=== PATIENT | female | born 1955 | race Caucasian/White ===

== ENCOUNTER 2019-04-19 10:35 | Inpatient (IN) | payer OTHER ==
--- OUTSIDE RECORDS SUMMARY | 2019-04-19 10:38 | XMS REPORT ---
:1955 [facility] Address [address] [place] [address] [address]. [address] [place] [address] Care Team Providers Name Role Phone Unavailable Unavailable Unavailable Problems This patient has no known problems. Allergies, Adverse Reactions, Alerts This patient has no known allergies or adverse reactions. Medications This patient has no known medications.
[2019-04-19 11:38] LABS: Absolute Lymphocytes (CBC) 0.4 K/uL (0.7-4.9); Basophils % 0.7 % (0-1.3); Hematocrit 44.1 % (36.0-45.0); Lymphocytes % 6.6 % (15.3-44.8); RBC Red Blood Cell Count 4.59 M/uL (3.86-4.86)
[2019-04-19 11:42] LABS: Arterial Blood Carboxyhemoglob 2.2 % (0-1.5); Blood Gas Oxyhemoglobin 93.5 % (94-97); Blood O2 Saturation 96.5 % (92-98.5)
[2019-04-19 11:43] LABS: Protime INR 0.94
[2019-04-19 11:50] LABS: ALT/SGPT 28 U/L (12-78); AST/SGOT 31 U/L (15-37); Albumin 3.8 g/dL (3.4-5.0); Alkaline Phosphatase 201 U/L (45-117); BUN Blood Urea Nitrogen 15 mg/dL (7-18); Bicarbonate 29 mmol/L (21-32); Bilirubin Direct < 0.1 mg/dL (0-0.2); Bilirubin Total 0.2 mg/dL (0.2-1.0); CKMB Creatine Kinase MB 1.4 ng/mL (0.3-3.6); Creatine Phosphokinase 86 U/L (26-192); Glucose Level 94 mg/dL (74-106); Lipase 222 U/L (73-393); Potassium 4.1 mmol/L (3.5-5.1); Protein, Total 7.2 g/dL (6.4-8.2); Sodium Level 137 mmol/L (136-145); Troponin (Emerg Dept Use Only) < 0.02 ng/mL (0.0-0.045)
[2019-04-19] MEDS ORDERED: NA CHLORIDE 0.9% 1,000 ML ONE (11:57)
[2019-04-19] MEDS ORDERED: METOPROLOL TAR 25 MG TAB ONE (11:57)
[2019-04-19] MEDS ORDERED: NA CHLORIDE 0.9% 500 ML ONE (11:57)
--- NOTE | 2019-04-19 13:27 | RAD REPORT ---
EXAM DESCRIPTION: CT - Chest For Pe Angio - 04/19/2019 1:16 pm CLINICAL HISTORY: Chest pain. COPD;Dyspnea COMPARISON: No comparisons TECHNIQUE: CT angiogram of the pulmonary arteries was performed with MIP. All CT scans are performed using dose optimization technique as appropriate and may include automated exposure control or mA/KV adjustment according to patient size. FINDINGS: No evidence of pulmonary thromboembolism. No acute aortic finding demonstrated. Prominent diffuse COPD is present. No significant pericardial or pleural fluid. Prominent S-shaped scoliosis is noted. IMPRESSION: No evidence of pulmonary thromboembolism. Advanced COPD.
[2019-04-19 13:36] LABS: Urine Blood TRACE (NEG); Urine Glucose NEGATIVE (NEG); Urine Protein 1+ (NEG)
[2019-04-19] MEDS ORDERED: OSELTAMIVIR 75 MG CAP ONE (13:50)
[2019-04-19] MEDS ORDERED: METHYLPREDNISOLONE 125 MG INJ ONE (13:50)
[2019-04-19 14:06] LABS: Urine Bacteria >50 /HPF (<20); Urine RBC <5 /HPF (NONE SEEN)
[2019-04-19 14:07] LABS: Urine Culture Reflex Order NOT NEEDED
[2019-04-19] MEDS ORDERED: NA CHLORIDE 0.9% 100 ML IV ONE (14:22)
[2019-04-19] MEDS ORDERED: CEFTRIAXONE/SWI 1gm 1 GM/10 ML SYR ONE (14:23)
--- NOTE | 2019-04-19 14:43 | EKG ---
Test Date: 2019-04-19 Test Time: 11:54:05 Wax Pot Tender: TT MEASUREMENT RESULTS: Intervals: Rate: 108 NC: 134 QRSD: 78 QT: 312 QTc: 418 [place]: P: 80 NC: 134 QRS: 69 T: 90 INTERPRETIVE STATEMENTS: Sinus tachycardia Biatrial enlargement Abnormal ECG Compared to ECG 09/28/2008 07:01:56 Atrial abnormality now present Sinus rhythm no longer present Electronically Signed On 04-19-19 14:42:30 TAPE RULES PRINTING MACHINE OPERATOR by Seven Farley
--- NOTE | 2019-04-19 14:46 | EDPHYS ---
Physician Documentation [facility] Name: Renard Garrett Age: 64 yrs Sex: Female : 1955 Arrival Date: 04/19/2019 Time: 10:38 Bed 16 Private MD: ED Physician Adrian Sawyer HPI: 04/19 11:32 This 64 yrs old Female presents to ER via Wheelchair with complaints of High snw Blood Pressure, Fever. 11:32 The patient has elevated blood pressure and discovered this at a physician's office, snw and sent to the emergency department for evaluation. Onset: The symptoms/episode began/occurred suddenly. Severity of symptoms: At its worst the blood pressure was 210 mm Hg. Historical: - Allergies: 10:45 No Known Allergies; sv - Home Meds: 12:58 Keppra 750 mg Oral tab 1 tab 2 times per day [Active]; citalopram 10 mg tab 1 tab once bp daily [Active]; diazepam 10 mg Oral tab 1 tab 4 times per day [Active]; - PMHx: 10:45 CVA; slight rided sided parlysis; Depression; sv - Immunization history:: Adult Immunizations up to date. - Social history:: Smoking status: Patient uses tobacco products, quit yesterday. - Ebola Screening: : No symptoms or risks identified at this time. ROS: 11:31 Constitutional: Negative for fever, chills, and weight loss, Eyes: Negative for injury, snw pain, redness, and discharge, ENT: Negative for injury, pain, and discharge, Neck: Negative for injury, pain, and swelling, Cardiovascular: Negative for chest pain, palpitations, and edema. 11:31 Abdomen/GI: Negative for abdominal pain, nausea, vomiting, diarrhea, and constipation, Back: Negative for injury and pain, : Negative for injury, bleeding, discharge, and swelling, MS/Extremity: Negative for injury and deformity, Skin: Negative for injury, rash, and discoloration, Neuro: Negative for headache, weakness, numbness, tingling, and seizure. 11:31 Respiratory: Positive for cough, shortness of breath, at rest. began suddenly yesterday. Exam: 11:28 Head/Face: Normocephalic, atraumatic. Eyes: Pupils equal round and reactive to light, snw extra-ocular motions intact. Lids and lashes normal. Conjunctiva and sclera are non-icteric and not injected. Cornea within normal limits. Periorbital areas with no swelling, redness, or edema. ENT: Nares patent. No nasal discharge, no septal abnormalities noted. Tympanic membranes are normal and external auditory canals are clear. Oropharynx with no redness, swelling, or masses, exudates, or evidence of obstruction, uvula midline. Mucous membranes moist. Neck: Trachea midline, no thyromegaly or masses palpated, and no cervical lymphadenopathy. Supple, full range of motion without nuchal rigidity, or vertebral point tenderness. No Meningismus. Chest/axilla: Normal chest wall appearance and motion. Nontender with no deformity. No lesions are appreciated. 11:28 Abdomen/GI: Soft, non-tender, with normal bowel sounds. No distension or tympany. No guarding or rebound. No evidence of tenderness throughout. Back: No spinal tenderness. No costovertebral tenderness. Full range of motion. Skin: Warm, dry with normal turgor. Normal color with no rashes, no lesions, and no evidence of cellulitis. MS/ Extremity: Pulses equal, no cyanosis. Neurovascular intact. Full, normal range of motion. Neuro: Awake and alert, GCS 15, oriented to person, place, time, and situation. Cranial nerves II-XII grossly intact. Sensory grossly intact. Cerebellar exam normal. Flight of ideas Psych: Awake, alert, with orientation to person, place and time. Behavior, mood, and affect are within normal limits. 11:28 Constitutional: The patient appears alert, awake, anxious, frail, in obvious distress, mildly distressed. 11:28 Cardiovascular: Rate: tachycardic, Rhythm: regular, Heart sounds: normal. 11:28 Respiratory: moderate respiratory distress is noted, Respirations: accessory muscle usage, that is moderate, pursed lip breathing, shallow respirations, tachypnea, Breath sounds: rhonchi, wheezing: that is moderate, cough. Vital Signs: 10:42 BP 154 / 120; Pulse 116; Resp 24; Temp 98.3; Pulse Ox 92% on R/A; Weight 51.26 kg; bp 11:00 BP 162 / 107; Pulse 113; Resp 24; Pulse Ox 97% ; bp 12:00 BP 186 / 108; Pulse 112; Resp 16; Pulse Ox 99% ; bp 12:52 BP 172 / 120; Pulse 81; Resp 27; Pulse Ox 100% ; bp 13:22 BP 165 / 108; Pulse 81; Resp 17; Pulse Ox 96% ; bp 14:34 BP 146 / 100; Pulse 79; Resp 24; Pulse Ox 90% ; bp 15:38 Pulse 84; Resp 30; Pulse Ox 98% on 2 lpm NC; bp 10:42 Pt placed on O2 \T\ 2L per NC. O2 sat up to 95%. bp MDM: 10:54 Patient medically screened. genet 11:33 Data reviewed: vital signs, nurses notes. Data interpreted: Pulse oximetry: on room air snw is 92 %. Interpretation: hypoxia. Plan: O2 by NC applied. Counseling: I had a detailed discussion with the patient and/or guardian regarding: the historical points, exam findings, and any diagnostic results supporting the discharge/admit diagnosis, the presence of at least one elevated blood pressure reading (>120/80) during this emergency department visit, lab results, radiology results. 04/19 11:19 Order name: ABG; Complete Time: 12:29 04/19 11:19 Order name: Urine Culture 04/19 11:19 Order name: Sputum Culture 04/19 11:19 Order name: C-Reactive Protein; Complete Time: 11:51 04/19 11:19 Order name: Basic Metabolic Panel; Complete Time: 11:51 04/19 11:19 Order name: Blood Culture Adult (2) 04/19 11:19 Order name: CBC with Diff; Complete Time: 11:41 04/19 11:19 Order name: Ckmb; Complete Time: 11:51 04/19 11:19 Order name: CPK; Complete Time: 11:51 04/19 11:19 Order name: Lactate; Complete Time: 11:41 04/19 11:19 Order name: LFT's; Complete Time: 11:51 04/19 11:19 Order name: Lipase; Complete Time: 11:51 04/19 11:19 Order name: Procalcitonin; Complete Time: 12:13 04/19 11:19 Order name: Protime (+inr); Complete Time: 11:46 04/19 11:19 Order name: Ptt, Activated; Complete Time: 11:46 w 04/19 11:19 Order name: Troponin (emerg Dept Use Only); Complete Time: 11:51 04/19 11:19 Order name: Urine Microscopic Only; Complete Time: 14:07 04/19 11:19 Order name: Flu; Complete Time: 11:44 04/19 13:12 Order name: Urine Dipstick--Ancillary (enter results); Complete Time: 13:39 bd 04/19 15:22 Order name: Basic Metabolic Panel EDMS 04/19 15:22 Order name: Basic Metabolic Panel EDMS 04/19 15:22 Order name: Basic Metabolic Panel EDMS 04/19 15:22 Order name: Basic Metabolic Panel EDMS 04/19 15:22 Order name: CBC with Automated Diff EDMS 04/19 15:22 Order name: CBC with Automated Diff EDMS 04/19 15:22 Order name: CBC with Automated Diff EDMS 04/19 15:22 Order name: CBC with Automated Diff EDMS 04/19 15:22 Order name: CBC with Automated Diff EDMS 04/19 15:22 Order name: CBC with Automated Diff EDMS 04/19 15:22 Order name: Magnesium EDMS 04/19 11:19 Order name: Chest Single View XRAY; Complete Time: 14:51 04/19 11:19 Order name: Accucheck; Complete Time: 11:37 04/19 11:19 Order name: Cardiac monitoring; Complete Time: 11:38 04/19 11:19 Order name: EKG - Nurse/Tech; Complete Time: 12:51 04/19 11:19 Order name: IV Saline Lock - Large Bore; Complete Time: 11:38 04/19 11:19 Order name: Labs collected and sent; Complete Time: 11:38 04/19 11:19 Order name: O2 Per Protocol; Complete Time: 11:38 04/19 11:19 Order name: O2 Sat Monitoring; Complete Time: 11:38 04/19 11:19 Order name: Urine Dipstick-Ancillary (obtain specimen); Complete Time: 12:51 04/19 11:19 Order name: CT Chest For PE Angio; Complete Time: 13:39 04/19 13:43 Order name: Misc. Order: attempt to wean o2; Complete Time: 14:05 snw 04/19 14:23 Order name: EKG Electrocardiogram ED[facility] 04/19 14:23 Order name: EKG Electrocardiogram [facility] 04/19 15:18 Order name: CONS Pharmacy Consult [facility] 04/19 15:18 Order name: Heart Healthy [facility] 04/19 15:22 Order name: Magnesium ED[facility] 04/19 15:22 Order name: Magnesium [facility] 04/19 15:22 Order name: Magnesium ED[facility] 04/19 15:22 Order name: Magnesium [facility] 04/19 15:22 Order name: Magnesium ED[facility] Administered Medications: 11:30 Drug: NS 0.9% (30 ml/kg) 30 ml/kg Route: IV; Rate: bolus; Site: left forearm; bp 12:00 Drug: Metoprolol 25 mg Route: PO; bp 14:00 Drug: Tamiflu 75 mg Route: PO; bp 14:00 Drug: SOLU-Medrol 125 mg Route: IVP; Site: left forearm; bp 14:15 Drug: Rocephin 1 grams Route: IV; Rate: calculated rate; Site: left forearm; bp Disposition: 16:40 Co-signature as Attending Physician, Adrian Sawyer MD I agree with the assessment and genet plan of care. Disposition: 04/19/19 14:46 Hospitalization ordered by Tank Mas for Observation. Preliminary diagnosis are Influenza due to identified novel influenza A virus, Chronic obstructive pulmonary disease, unspecified - with dyspnea, Urinary tract infection, site not specified, Essential (primary) hypertension. - Bed requested for Telemetry/MedSurg (observation). - Status is Observation. bp - Condition is Stable. - Problem is new. - Symptoms are unchanged. UTI on Admission? Yes Signatures: Dispatcher [employer] [facility] Jennifer Snider RN RN kl Verde, Stephanie, RN RN sv Anderson, Corey, MD MD cha Therrien, Shelly, LEGAL INVESTIGATOR-C LEGAL INVESTIGATOR-Csnw Vidal Markham RN RN bp Corrections: (The following items were deleted from the chart) 11:32 11:28 Abdomen/GI: Soft, non-tender, with normal bowel sounds. No distension or tympany. snw No guarding or rebound. No evidence of tenderness throughout. Back: No spinal tenderness. No costovertebral tenderness. Full range of motion. Skin: Warm, dry with normal turgor. Normal color with no rashes, no lesions, and no evidence of cellulitis. MS/ Extremity: Pulses equal, no cyanosis. Neurovascular intact. Full, normal range of motion. Neuro: Awake and alert, GCS 15, oriented to person, place, time, and situation. Cranial nerves II-XII grossly intact. Motor strength 5/5 in all extremities. Sensory grossly intact. Cerebellar exam normal. Normal gait. Psych: Awake, alert, with orientation to person, place and time. Behavior, mood, and affect are within normal limits. [facility] 15:35 14:46 Hospitalization Ordered by Tank Mas MD for Observation. Preliminary kl diagnosis is Influenza due to identified novel influenza A virus; Chronic obstructive pulmonary disease, unspecified - with dyspnea; Urinary tract infection, site not specified; Essential (primary) hypertension. Bed requested for Telemetry/MedSurg (observation). Status is Observation. Condition is Stable. Problem is new. Symptoms are unchanged. UTI on Admission? Yes. [facility] 16:16 15:35 04/19/2019 14:46 Hospitalization Ordered by Tank Mas MD for Observation. bp Preliminary diagnosis is Influenza due to identified novel influenza A virus; Chronic obstructive pulmonary disease, unspecified - with dyspnea; Urinary tract infection, site not specified; Essential (primary) hypertension. Bed requested for Telemetry/MedSurg (observation). Status is Observation. Condition is Stable. Problem is new. Symptoms are unchanged. UTI on Admission? Yes. kl
--- NOTE | 2019-04-19 14:46 | ER ---
Nurse's Notes [facility] Name: Renard Garrett Age: 64 yrs Sex: Female : 1955 Arrival Date: 04/19/2019 Time: 10:38 Bed 16 Private MD: Diagnosis: Influenza due to identified novel influenza A virus;Chronic obstructive pulmonary disease, unspecified-with dyspnea;Urinary tract infection, site not specified;Essential (primary) hypertension Presentation: 04/19 10:41 Presenting complaint: Patient states: went to see Dr Abreu for her ankle injury but sv they told her to bring her to the ER because of HTN and high fever. c/o congestion, productive cough. Transition of care: patient was not received from another setting of care. Onset of symptoms was April 19, 2019. Risk Assessment: Do you want to hurt yourself or someone else? Patient reports no desire to harm self or others. Care prior to arrival: None. 10:41 Method Of Arrival: Wheelchair sv 10:41 Acuity: GABRIELE 2 sv 10:43 Initial Sepsis Screen: Does the patient meet any 2 criteria? RR > 20 per min. HR > 90 sv bpm. Yes Does the patient have a suspected source of infection? Yes: Productive cough/pneumonia If YES to both, name of provider notified: Kathy LIN Triage Assessment: 10:46 General: Appears in no apparent distress. comfortable, slender, Behavior is bp cooperative, appropriate for age, anxious. Pain: Denies pain. Historical: - Allergies: 10:45 No Known Allergies; sv - Home Meds: 12:58 Keppra 750 mg Oral tab 1 tab 2 times per day [Active]; citalopram 10 mg tab 1 tab once bp daily [Active]; diazepam 10 mg Oral tab 1 tab 4 times per day [Active]; - PMHx: 10:45 CVA; slight rided sided parlysis; Depression; sv - Immunization history:: Adult Immunizations up to date. - Social history:: Smoking status: Patient uses tobacco products, quit yesterday. - Ebola Screening: : No symptoms or risks identified at this time. Screenin:02 Abuse screen: Denies threats or abuse. Denies injuries from another. Nutritional bp screening: No deficits noted. Tuberculosis screening: No symptoms or risk factors identified. Fall Risk None identified. Assessment: 10:50 Reassessment: Code Sepsis called. sv 11:10 Reassessment: PROVIDER AT B/S. bp 11:35 Reassessment: RT AT B/S. bp 12:20 Reassessment: PT REMAINS TACHYPNEIC ON MONITOR. CT PE PENDING. bp 12:51 Reassessment: PT ASSISTED WITH TOILETING. NO CHANGE IN CONDITION. CT PENDING. bp 13:07 Reassessment: PT TO CT WITH ELECTRIC DRILL OPERATOR. bp 13:22 Reassessment: PT RETURNED FROM CT. NO SIGNIFICANT CHANGE TO VS. bp 14:06 Reassessment: PT WEANED TO ROOM AIR. AMBULATED TO RESTROOM. bp 14:35 Reassessment: PT NOT MAINTAINING SAT ON ROOM AIR. ADMIT INITIATED. bp Vital Signs: 10:42 BP 154 / 120; Pulse 116; Resp 24; Temp 98.3; Pulse Ox 92% on R/A; Weight 51.26 kg; bp 11:00 BP 162 / 107; Pulse 113; Resp 24; Pulse Ox 97% ; bp 12:00 BP 186 / 108; Pulse 112; Resp 16; Pulse Ox 99% ; bp 12:52 BP 172 / 120; Pulse 81; Resp 27; Pulse Ox 100% ; bp 13:22 BP 165 / 108; Pulse 81; Resp 17; Pulse Ox 96% ; bp 14:34 BP 146 / 100; Pulse 79; Resp 24; Pulse Ox 90% ; bp 15:38 Pulse 84; Resp 30; Pulse Ox 98% on 2 lpm NC; bp 10:42 Pt placed on O2 \T\ 2L per NC. O2 sat up to 95%. bp ED Course: 10:38 Patient arrived in ED. as 10:42 Triage completed. sv 10:43 Arm band placed on. sv 10:54 Kathy Woods FNP-C is PHCP. snw 10:54 Adrian Sawyer MD is Attending Physician. snw 11:00 Inserted saline lock: 20 gauge in left forearm, using aseptic technique. Blood bp collected. 11:00 Oxygen administration via nasal cannula \T\ 3L/min. bp 11:01 Vidal Markham, CHERYL is Primary Nurse. bp 11:02 Patient has correct armband on for positive identification. Bed in low position. Call bp light in reach. Side rails up X2. 11:52 Chest Single View XRAY In Process Unspecified. EDMS 13:15 CT Chest For PE Angio In Process Unspecified. EDMS 14:24 EKG done, by network control technician. reviewed by Adrian Sawyer MD. tc 14:44 Tank Mas MD is Hospitalizing Provider. snw 15:38 No provider procedures requiring assistance completed. Patient admitted, IV remains in bp place. Administered Medications: 11:30 Drug: NS 0.9% (30 ml/kg) 30 ml/kg Route: IV; Rate: bolus; Site: left forearm; bp 12:00 Drug: Metoprolol 25 mg Route: PO; bp 14:00 Drug: Tamiflu 75 mg Route: PO; bp 14:00 Drug: SOLU-Medrol 125 mg Route: IVP; Site: left forearm; bp 14:15 Drug: Rocephin 1 grams Route: IV; Rate: calculated rate; Site: left forearm; bp Outcome: 14:46 Decision to Hospitalize by Provider. snw 16:02 Admitted to Med/surg accompanied by tech, family with patient, via wheelchair, room bp 211, with chart, Report called to VAIBHAV LUNA 16:02 Condition: stable 16:02 Instructed on the need for admit. 16:16 Patient left the ED. bp Signatures: Dispatcher [employer] EDMarie Caldwell, RN RN Kathy Woods, TIN ROOFER-C TIN ROOFER-Shyannw Vita Moura as Yumiko Okeefe, acid strength inspector EKG Ttc Vidal Markham RN RN bp Corrections: (The following items were deleted from the chart) 10:43 10:41 Presenting complaint: Patient states: went to see Dr Abreu for her ankle sv injury but they told her to bring her to the ER because of HTN and high fever. c/o congestion. sv 10:45 10:41 Acuity: GABRIELE 3 sv sv 10:48 10:42 BP 154 / 120; Pulse 116bpm; Resp 24bpm; Pulse Ox 92% RA; Temp 98.3F; sv sv 11:00 10:43 Initial Sepsis Screen: Does the patient meet any 2 criteria? RR > 20 per min. HR sv > 90 bpm. Yes Does the patient have a suspected source of infection? Yes: Productive cough/pneumonia sv 11:34 10:42 BP 154 / 120; Pulse 116bpm; Resp 24bpm; Pulse Ox 92% RA; Temp 98.3F; Pt placed on bp O2 \T\ 2L per NC. O2 sat up to 95%.; sv
--- NOTE | 2019-04-19 14:47 | RAD REPORT ---
EXAM DESCRIPTION: Lloyd Single View04/19/2019 11:51 am CLINICAL HISTORY: Shortness of breath COMPARISON: 2018 FINDINGS: The lungs appear clear of acute infiltrate. The heart is normal size Lungs are hyperaerated Scoliosis involves the spine IMPRESSION: No acute abnormalities displayed
--- NOTE | 2019-04-19 15:21 | P.HP ---
Certification for Inpatient Patient admitted to: Observation Practitioner: I am a practitioner with admitting privileges, knowledge of patient current condition, hospital course, and medical plan of care. Services: Services provided to patient in accordance with Admission requirements found in Title 42 Section 412.3 of the Code of Federal Regulations Patient History Date of Service: 04/19/19 Reason for admission: Shortness of breath History of Present Illness: Ms. Garrett is 64-year-old female with h/o hypertension & stroke with residual RUE weakness, smoker who presented to the her PCP with complaints of difficulty breathing. Patient was found to be hypoxic and hypertensive; thus, referred to the ER. Her symptoms started about 2 days ago associated with a productive cough with beige colored sputum. She endorsed myalgia, fatigue and malaise. She denied any fever or chills. She denied any nasal congestion or rhinorrhea. She denies any exposure to sick contacts. Allergies No Known Allergies Allergy (Verified 04/19/19 15:52) Home medications list reviewed: Yes Home Medications: diazePAM [Diazepam] 1 - 2 tab PO Q4HP PRN 04/19/19 levETIRAcetam [Levetiracetam ER] 750 mg PO BEDTIME 04/19/19 - Past Medical/Surgical History -: Hypertension -: Stroke -: Seizure -: Breast tumor, uterine tumor -: Bilateral masectomy with reconstructive surgery due to multiple beign breas -: tumor - Family History Family History: Reviewed- Non-Contributory (Patient is adopted) - Social History Smoking Status: Current every day smoker Alcohol use: No CD- Drugs: Yes Review of Systems 10-point ROS is otherwise unremarkable Respiratory: Cough, Shortness of Breath, Sputum, Wheezing Physical Examination - Physical Exam General: Alert, In no apparent distress HEENT: Atraumatic, PERRLA, Mucous membr. moist/pink, EOMI, Sclerae nonicteric Neck: Supple, 2+ carotid pulse no bruit, No LAD, Without JVD or thyroid abnormality Respiratory: Clear to auscultation bilaterally, Diminished Cardiovascular: Regular rate/rhythm, Normal S1 S2 Gastrointestinal: Normal bowel sounds, No tenderness Musculoskeletal: No tenderness Integumentary: No rashes Neurological: Normal affect, Abnormal gait, Abnormal speech, Abnormal strength, Abnormal tone Lymphatics: No axilla or inguinal lymphadenopathy - Studies Laboratory Data (last 24 hrs) 04/19/19 11:15: PT 11.1, INR 0.94, APTT 32.0 04/19/19 11:15: WBC 6.0, Hgb 14.6, Hct 44.1, Plt Count 190 04/19/19 11:00: Sodium 137, Potassium 4.1, BUN 15, Creatinine 1.00, Glucose 94, Total Bilirubin 0.2, AST 31, ALT 28, Alkaline Phosphatase 201 H, Lipase 222 Microbiology Data (last 24 hrs): 04/19/19 11:25 Nasopharnyx Influenza Type A Antigen Screen - Final 04/19/19 11:25 Nasopharnyx Influenza Type B Antigen Screen - Final Assessment and Plan - Plan Ms. Garrett is 64y/o female pw dyspnea #Dyspnea- 2/2 Influenza A; COPD exacerbation -CXR is unremarkable -supplemental oxygen, Breathing tx and IS -Steroid therapy #COPD exacerbation- denies any prior diagnosis.CT Chest with findings suggestive of advanced COPD - Nebs, steriods, and supplemental oxygen - will need outpatient PFT and follow up with pulm. # Influenza A- initiated on Tamiflu -monitor VS #Hypertensive urgency- Patient is off antihypertensives. She claims that her neurologist is not in agreement to control her BP due to concern for stroke? -BP is significantly elevated. -will add oral antihypertensive -continue IV hydralazine PRN -CT brain #Stroke with residual LUE plegia- aspirin and statin -monitor -Dysarthric #Seizure disorder- continue keppra and diazepam -seizure precaution #Polysubstance abuse- marijuana and tobacco -cessation strongly advised DVT ppx- SCD Patient is full code. Dispo- obs admission. anticipate a.m discharge. - Advance Directives Does patient have a Living Will: No Does patient have a Durable POA for Healthcare: No
[2019-04-19] MEDS ORDERED: METHYLPREDNISOLONE 40 MG INJ IV PRN (16:00)
[2019-04-19 16:43] VITALS: BMI 18.6
[2019-04-19] MEDS ORDERED: HYDRALAZINE HCL 20 MG/ML VIAL IV PRN (17:45)
[2019-04-19] MEDS ORDERED: DIAZEPAM 5 MG TABLET PO PRN (17:46)
[2019-04-19] MEDS: ALBUTEROL 2.5 MG/3 ML NEB SOL NEB SCH (20:02)
[2019-04-19] MEDS: LEVETIRACETAM 750 MG PO SCH (21:00)
[2019-04-19] MEDS: OSELTAMIVIR 75 MG CAP PO SCH (21:31)
[2019-04-20] MEDS: ALBUTEROL 2.5 MG/3 ML NEB SOL NEB SCH ×4 (01:54→19:05)
[2019-04-20 05:53] LABS: Magnesium 2.1 mg/dL (1.8-2.4); Potassium 4.1 mmol/L (3.5-5.1)
[2019-04-20 05:59] LABS: Absolute Lymphocytes (CBC) 0.6 K/uL (0.7-4.9); Basophils % 0.4 % (0-1.3); Hematocrit 41.4 % (36.0-45.0); Lymphocytes % 16.3 % (15.3-44.8); RBC Red Blood Cell Count 4.23 M/uL (3.86-4.86)
[2019-04-20] MEDS: AMLODIPINE 5 MG TAB PO SCH (08:41)
[2019-04-20] MEDS: OSELTAMIVIR 75 MG CAP PO SCH ×2 (08:42→21:30)
--- NOTE | 2019-04-20 11:17 | P.PN ---
Subjective Date of Service: 04/20/19 Chief Complaint: Shortness of breath Subjective: No new changes, Tolerating diet Remains SOB with minimal exertion. Code status addressed again today, patient want to remains full code; however will only allow to be on Mechanical ventilation if needed, for not > 3days unless improving otherwise. Review of Systems 10-point ROS is otherwise unremarkable Respiratory: Dry, Shortness of Breath Physical Examination - Vital Signs Temperature: 97.1 F Blood Pressure: 159/81 Pulse: 71 Respirations: 20 Pulse Ox (%): 97 - Physical Exam General: Alert, In no apparent distress, Cachectic HEENT: Atraumatic, PERRLA, EOMI Neck: Supple, JVD not distended Respiratory: Diminished, Expiratory wheezes Cardiovascular: Regular rate/rhythm, Normal S1 S2 Gastrointestinal: Normal bowel sounds, No tenderness Musculoskeletal: No tenderness, Clubbing Integumentary: No rashes Neurological: Normal affect, Abnormal speech, Abnormal strength (RUE), Abnormal tone Lymphatics: No axilla or inguinal lymphadenopathy - Studies Laboratory Data (last 24 hrs) 04/19/19 11:15: PT 11.1, INR 0.94, APTT 32.0 04/19/19 11:15: WBC 6.0, Hgb 14.6, Hct 44.1, Plt Count 190 04/19/19 11:00: Sodium 137, Potassium 4.1, BUN 15, Creatinine 1.00, Glucose 94, Total Bilirubin 0.2, AST 31, ALT 28, Alkaline Phosphatase 201 H, Lipase 222 Microbiology Data (last 24 hrs): 04/19/19 11:00 Blood - Blood Anaerobic Blood Culture - Final 04/19/19 11:25 Nasopharnyx Influenza Type A Antigen Screen - Final 04/19/19 11:25 Nasopharnyx Influenza Type B Antigen Screen - Final Assessment And Plan - Plan Ms. Garrett is 64y/o female pw dyspnea #Dyspnea- 2/2 Influenza A; COPD exacerbation -CXR is unremarkable -supplemental oxygen, Breathing tx and IS -Steroid therapy #COPD exacerbation- denies any prior diagnosis. CT Chest with findings suggestive of advanced COPD - Nebs, steriods, and supplemental oxygen - will need outpatient PFT and follow up with pulm. - not ready to taper off steriod - IS # Influenza A- continue on Tamiflu -monitor VS #Hypertensive urgency- Patient is off antihypertensives. She claimed that her neurologist is not in agreement to control her BP due to concern for stroke? -BP was significantly elevated on admission -initiated on oral antihypertensive -continue IV hydralazine PRN -will consider CT brain #Stroke with residual LUE plegia- aspirin and statin -monitor -Dysarthric #Seizure disorder- continue keppra and diazepam -seizure precaution #Polysubstance abuse- marijuana and tobacco -cessation strongly advised DVT ppx- SCD Patient is full code. Patient needs advance directives as she has specific requests. No [facility] ventilator for >3 days unless obvious improvement. She declined for her NOK to make the decision if needed. vice president of consulting services to be consulted for assistance. Dispo- pending clinical improvement.
[2019-04-20] MEDS: CEFTRIAXONE/SWI 1gm 1 GM/10 ML SYR IVP SCH (15:37)
[2019-04-20] MEDS ORDERED: KETOROLAC 30 MG/ML INJ IV ONE (20:52)
[2019-04-20] MEDS ORDERED: ACETAMINOPHEN 325 MG TABLET PO PRN (20:53)
[2019-04-20] MEDS ORDERED: CITALOPRAM 10 MG TABLET PO SCH (21:00)
[2019-04-20] MEDS: LEVETIRACETAM 750 MG PO SCH (21:00)
[2019-04-20] MEDS: DULERA 100/5 (MOMETASONE/FORMOTEROL) INHALER IH SCH (21:30)
[2019-04-21] MEDS: ALBUTEROL 2.5 MG/3 ML NEB SOL NEB SCH ×2 (01:10→07:57)
[2019-04-21 04:57] VITALS: TEMP 97.1
[2019-04-21 06:00] LABS: Potassium 3.6 mmol/L (3.5-5.1)
[2019-04-21 08:15] VITALS: O2SAT 91
[2019-04-21] MEDS ORDERED: predniSONE 10 MG TAB PO SCH (09:00)
[2019-04-21] MEDS: DULERA 100/5 (MOMETASONE/FORMOTEROL) INHALER IH SCH (09:00)
[2019-04-21 09:27] VITALS: BP 130/76
[2019-04-21] MEDS: OSELTAMIVIR 75 MG CAP PO SCH (09:27)
[2019-04-21] MEDS: AMLODIPINE 5 MG TAB PO SCH (09:27)
[2019-04-21] MEDS: CEFTRIAXONE/SWI 1gm 1 GM/10 ML SYR IVP SCH (09:28)
--- NOTE | 2019-04-21 11:24 | P.DS ---
Admission Date: 04/20/19 Discharge Date: 04/21/19 Disposition: ROUTINE DISCHARGE Discharge Condition: GOOD Reason for Admission: Shortness of breath Consultations: Truck Manager - Problems (1) Influenza A Status: Acute (2) Acute respiratory distress Status: Acute (3) COPD exacerbation Status: Acute (4) Hypertensive urgency Status: Acute Brief History of Present Illness: Ms. Garrett is 64-year-old female with h/o hypertension & stroke with residual RUE weakness, smoker who presented to the her PCP with complaints of difficulty breathing. Patient was found to be hypoxic and hypertensive; thus, referred to the ER. Her symptoms started about 2 days ago associated with a productive cough with beige colored sputum. She endorsed myalgia, fatigue and malaise. She denied any fever or chills. She denied any nasal congestion or rhinorrhea. She denies any exposure to sick contacts. Hospital Course: Initial evaluation with nasopharyngeal swab was positive for influenza A antigen. CT chest was suggestive of COPD, patient denied any prior history of COPD. She was initiated on Tamiflu, breathing treatments, steroid and supplemental oxygen. Patient improved gradually and weaned off supplemental oxygen. Her urinalysis was strongly positive on presentation, culture grew pansensitive E coli for which she will be discharged home on oral antibiotics. Patient's blood pressure was significantly elevated on presentation, not on any anti hypertensives at home. Blood pressure has improved with po amlodipine. She will follow up with her PCP and client consultant outpatient for further care. Smoking cessation has been strongly advised. Patient was also evaluated by account retention representative, will follow up outpatient for PFT. She remained hemodynamically stable for discharge home. Vital Signs/Physical Exam: Temp Pulse Resp BP Pulse Ox 97.1 F 69 16 130/76 94 04/21/19 08:00 04/21/19 09:27 04/21/19 08:00 04/21/19 09:27 04/21/19 08:00 General: Alert, In no apparent distress HEENT: Atraumatic, PERRLA, EOMI Neck: Supple, JVD not distended Respiratory: Clear to auscultation bilaterally, Normal air movement Cardiovascular: Regular rate/rhythm, Normal S1 S2 Gastrointestinal: Normal bowel sounds, No tenderness Musculoskeletal: No tenderness, Other (RUE weakness) Integumentary: No rashes Neurological: Normal speech, Normal tone, Normal affect Lymphatics: No axilla or inguinal lymphadenopathy Laboratory Data at Discharge: WBC 3.9 K/uL (4.3-10.9) L D 04/20/19 05:11 Hgb 13.8 g/dL (12.0-15.0) 04/20/19 05:11 Hct 41.4 % (36.0-45.0) 04/20/19 05:11 Plt Count 168 K/uL (152-406) 04/20/19 05:11 PT 11.1 SECONDS (9.5-12.5) 04/19/19 11:15 INR 0.94 04/19/19 11:15 APTT 32.0 SECONDS (24.3-36.9) 04/19/19 11:15 Sodium 140 mmol/L (136-145) 04/21/19 05:15 Potassium 3.6 mmol/L (3.5-5.1) 04/21/19 05:15 BUN 18 mg/dL (7-18) 04/21/19 05:15 Creatinine 0.89 mg/dL (0.55-1.3) 04/21/19 05:15 Glucose 74 mg/dL (74-106) 04/21/19 05:15 Magnesium Cancelled 04/20/19 15:30 Total Bilirubin 0.2 mg/dL (0.2-1.0) 04/19/19 11:00 AST 31 U/L (15-37) 04/19/19 11:00 ALT 28 U/L (12-78) 04/19/19 11:00 Alkaline Phosphatase 201 U/L (45-117) H 04/19/19 11:00 Lipase 222 U/L (73-393) 04/19/19 11:00 Home Medications: Citalopram [Celexa*] 1 tab PO BEDTIME 04/19/19 diazePAM [Diazepam] 1 - 2 tab PO Q4HP PRN 04/19/19 levETIRAcetam [Levetiracetam ER] 750 mg PO BEDTIME 04/19/19 Amlodipine [Norvasc*] 5 mg PO DAILY #30 tab 04/21/19 Cephalexin [Keflex] 500 mg PO Q12H #8 cap 04/21/19 Mometasone/Formoterol [Dulera 100 Mcg/5 Mcg Inhaler] 2 puff IH BID #1 inhaler Oseltamivir [Tamiflu*] 75 mg PO BID #6 cap 04/21/19 predniSONE [Deltasone*] 10 mg PO BID #10 tab 04/21/19 New Medications: Amlodipine [Norvasc*] 5 mg PO DAILY #30 tab Cephalexin [Keflex] 500 mg PO Q12H #8 cap Mometasone/Formoterol [Dulera 100 Mcg/5 Mcg Inhaler] 2 puff IH BID #1 inhaler Oseltamivir [Tamiflu*] 75 mg PO BID #6 cap predniSONE [Deltasone*] 10 mg PO BID #10 tab Patient Discharge Instructions: Follow up with pcp for BP monitoring and management. Follow up with account retention representative for COPD Diet: Regular Activity: Ad keegan Followup: Cheryl Power MD [Primary Care Provider] - 1 Week Jose Bolivar MD [ACTIVE - CAN ADMIT] - 1-2 Weeks
--- NOTE | 2019-04-21 12:30 | P.CNS ---
Date of Consult: 04/21/19 Reason for Consult: Shortness of breath Chief Complaint: COPD exacerbation History of Present Illness: Patient is 64 years of age with a history of presume COPD active smoker admitted with worsening dyspnea the past 2 days nonproductive cough no fever chills still continues to smoke Allergies No Known Allergies Allergy (Verified 04/19/19 15:52) Home Medications: Citalopram [Celexa*] 1 tab PO BEDTIME 04/19/19 diazePAM [Diazepam] 1 - 2 tab PO Q4HP PRN 04/19/19 levETIRAcetam [Levetiracetam ER] 750 mg PO BEDTIME 04/19/19 Amlodipine [Norvasc*] 5 mg PO DAILY #30 tab 04/21/19 Cephalexin [Keflex] 500 mg PO Q12H #8 cap 04/21/19 Mometasone/Formoterol [Dulera 100 Mcg/5 Mcg Inhaler] 2 puff IH BID #1 inhaler Oseltamivir [Tamiflu*] 75 mg PO BID #6 cap 04/21/19 predniSONE [Deltasone*] 10 mg PO BID #10 tab 04/21/19 - Past Medical/Surgical History Diabetic: No -: Hypertension -: Stroke -: Seizure -: Breast tumor, uterine tumor -: Broken bones -: Bilateral masectomy with reconstructive surgery due to multiple beign breas -: tumor - Social History Smoking Status: Current every day smoker Alcohol use: No CD- Drugs: Yes Caffeine use: Yes Place of Residence: Home Review of Systems 10-point ROS is otherwise unremarkable Respiratory: Cough, Shortness of Breath Physical Examination Temp Pulse Resp BP Pulse Ox 97.1 F 69 16 130/76 94 04/21/19 08:00 04/21/19 09:27 04/21/19 08:00 04/21/19 09:27 04/21/19 08:00 General: Alert, Oriented x3 HEENT: Atraumatic Neck: Supple Respiratory: Expiratory wheezes Cardiovascular: No edema, Regular rate/rhythm, Normal S1 S2 Gastrointestinal: Normal bowel sounds, Soft and benign - Problems (1) COPD exacerbation Current Visit: Yes Status: Acute Plan: Patient is 64 years of age admitted with COPD exacerbation active smoker labs are unremarkable CT angiogram negative for PE has COPD changes vital signs stable agree with discharge on a bronchodilator and low-dose prednisone to follow up with me in 2 weeks of outpatient pulmonary function testing patient has been console not to smoke patient also sees a global account manager and has recently had an electrophysiological study done
== END 2019-04-21 13:03 | disposition home or self-care (01) | DRG 194 ==
LOC: ER 10:35 → ERHOLD 15:17 → 2ND 15:56 → OBSVTOIN 04-20 15:35
PROVIDERS: ADMIT Hospitalist; ATTEND Hospitalist
DX: J09.X2 Influenza due to identified novel influenza A virus with other respiratory manifestations (principal); J44.1 Chronic obstructive pulmonary disease with (acute) exacerbation; I69.354 Hemiplegia and hemiparesis following cerebral infarction affecting left non-dominant side; I16.0 Hypertensive urgency; G40.909 Epilepsy, unspecified, not intractable, without status epilepticus; F17.210 Nicotine dependence, cigarettes, uncomplicated; F12.10 Cannabis abuse, uncomplicated; R06.03 Acute respiratory distress
CPT/HCPCS: 36415; 71045; 71275; 80048; 80076; 81003; 81015; 82550; 82553; 82805; 83605; 83690; 83735; 84145; 84484; 85025; 85610; 85730; 86140; 87040; 87077; 87086; 87088; 87186; 87804; 93005; 96374; 96375; 99285; G0378; J0696; J2920; J2930; J7030; J7040; J7512; J7606